=== PATIENT | male | born 1975 | race American Indian/Alaskan Native ===

== ENCOUNTER 2018-07-01 10:03 | Emergency (ER) | payer BC ==
[2018-07-01 10:18] VITALS: BP 129/81
[2018-07-01 10:51] LABS: Hematocrit 44.2 % (35.5-45.6); Hemoglobin 15.2 gm/dl (11.8-15.2); Mean Corpuscular HGB Conc 34 % (32-34); Mean Corpuscular Volume 81 fl (84-94); Platelet Count 233 K/mm3 (140-440); Red Blood Count 5.47 M/mm3 (3.65-5.03); Red Cell Distribution Width 14.7 % (13.2-15.2)
--- NOTE | 2018-07-01 10:59 | XRay Report ---
ROUTINE CHEST, TWO VIEWS: HISTORY: chest pain. The trachea, heart, mediastinal contour, lung holloway and bony thorax are unremarkable. IMPRESSION: Unremarkable chest x-ray.
[2018-07-01 11:09] LABS: BUN/Creatinine Ratio 17; Blood Urea Nitrogen 17 mg/dL (9-20); Calcium 9.3 mg/dL (8.4-10.2); Hemolysis Index 8
--- NOTE | 2018-07-01 11:25 | Emergency Department Report ---
Upper Extremity - HPI Chief Complaint: Extremity Problem,Nontraumatic Stated Complaint: LFT FOOT PAIN Time Seen by Provider: 07/01/18 10:23 Occurred When: 4 Days Severity: moderate Symptoms: Yes Pain with Movement, Yes Swelling, No Deformity, No Limited Range of Movement, No Numbness, No Weakness, No Bruising/Ecchymosis, No Laceration or Abrasion Other History: Patient describes pain ED Review of Systems ROS: Stated complaint: LFT FOOT PAIN Other details as noted in HPI Comment: All other systems reviewed and negative ED Past Medical Hx - Past Medical History Previous Medical History?: No - Surgical History Past Surgical History?: No - Social History Smoking Status: Never Smoker Substance Use Type: Alcohol - Medications Home Medications: Home Medications Medication Instructions Recorded Confirmed Last Taken Type Cyclobenzaprine [Flexeril] 10 mg PO QHS PRN #20 tablet 07/01/18 Unknown Rx HYDROcodone/ACETAMINOPHEN [[place] 1 each PO Q6H #10 tablet 07/01/18 Unknown Rx 5-325 Tablet] Naproxen [Naprosyn] 500 mg PO BID #20 tablet 07/01/18 Unknown Rx Upper Extremity Exam - Exam General: Vital signs noted. No distress. Alert and acting appropriately. Head and Torso: No HEENT Abnormality, No Neck Tenderness, No Chest/Lungs Abnormality, No Abdominal Tenderness, No Back Tenderness Shoulder Exam: Yes Normal Range of Motion in Shoulder, No Shoulder Tenderness, No Clavicle Tenderness, No Shoulder Deformity, No AC Joint Tenderness Arm Exam: No Arm/Humerus Tenderness, No Arm Deformity Elbow: No Elbow Tenderness, No Normal Range of Motion in Elbow, No Elbow Deformity Forearm: No Forearm Tenderness, No Forearm Deformity, No Pain with Pronation, No Pain with Supination Wrist: Yes Normal ROM in Wrist, No Wrist Tenderness, No Wrist Deformity, No Snuffbox Tenderness, No Pain with Axial Thumb Compression Hand: Yes Normal ROM in Digit(s), No Hand Tenderness, No Hand Deformity, No Digit Tenderness, No Digit(s) Deformity, No Tendon Dysfunction CMS Exam: No Broken Skin, No Normal Distal Pulses, No Normal Capillary Refill, No Normal Distal Sensation ED Course Vital Signs 07/01/18 10:16 Temperature 98.5 F Pulse Rate 64 Respiratory 16 Rate Blood Pressure 129/81 [Right] O2 Sat by Pulse 99 Oximetry ED Medical Decision Making - Lab Data Result diagrams: 07/01/18 10:34 07/01/18 10:34 Laboratory Last Values WBC 3.3 K/mm3 (4.5-11.0) L 07/01/18 10:34 RBC 5.47 M/mm3 (3.65-5.03) H 07/01/18 10:34 Hgb 15.2 gm/dl (11.8-15.2) 07/01/18 10:34 Hct 44.2 % (35.5-45.6) 07/01/18 10:34 MCV 81 fl (84-94) L 07/01/18 10:34 MCH 28 pg (28-32) 07/01/18 10:34 MCHC 34 % (32-34) 07/01/18 10:34 RDW 14.7 % (13.2-15.2) 07/01/18 10:34 Plt Count 233 K/mm3 (140-440) 07/01/18 10:34 D-Dimer 164.37 ng/mlDDU (0-234) 07/01/18 10:34 Sodium 140 mmol/L (137-145) 07/01/18 10:34 Potassium 3.8 mmol/L (3.6-5.0) 07/01/18 10:34 Chloride 103.4 mmol/L (98-107) 07/01/18 10:34 Carbon Dioxide 26 mmol/L (22-30) 07/01/18 10:34 Anion Gap 14 mmol/L 07/01/18 10:34 BUN 17 mg/dL (9-20) 07/01/18 10:34 Creatinine 1.0 mg/dL (0.8-1.5) 07/01/18 10:34 Estimated GFR > 60 ml/min 07/01/18 10:34 BUN/Creatinine Ratio 17 % 07/01/18 10:34 Glucose 101 mg/dL (75-100) H 07/01/18 10:34 Calcium 9.3 mg/dL (8.4-10.2) 07/01/18 10:34 NT-Pro-B Natriuret Pep < 5 pg/mL (0-450) 07/01/18 10:34 - Radiology Data Radiology results: report reviewed, image reviewed ROUTINE CHEST, TWO VIEWS: HISTORY: chest pain. The trachea, heart, mediastinal contour, lung holloway and bony thorax are unremarkable. IMPRESSION: Unremarkable chest x-ray. Transcribed By: TTR Dictated By: VELASQUEZ ABAD JR, MD Electronically Authenticated By: VELASQUEZ ABAD JR, MD Signed Date/Time: 07/01/18 1054 - Medical Decision Making 3-year-old male presents with muscle strain of the lower gomes injury. - Differential Diagnosis DVT, myalgia, muscle strain, venous stasis Critical care attestation.: If time is entered above; I have spent that time in minutes in the direct care of this critically ill patient, excluding procedure time. ED Disposition Clinical Impression: Muscle strain, lower leg, Leg muscle spasm Disposition: TO HOME OR SELFCARE Is pt being admited?: No Does the pt Need Aspirin: No Condition: Stable Instructions: Muscle Strain (ED), Trigger Point Pain (ED), Musculoskeletal Pain (ED) Additional Instructions: Make sure to follow up with the primary care physician as discussed. Take all your medications as you've been prescribed. Apply heat 3 times a day to the muscle of the legs. If you have any worsening symptoms or develop new symptoms please return to ED immediately. Prescriptions: Cyclobenzaprine [Flexeril] 10 mg PO QHS PRN #20 tablet PRN Reason: Muscle Spasm Naproxen [Naprosyn] 500 mg PO BID #20 tablet HYDROcodone/ACETAMINOPHEN [[place] 5-325 Tablet] 1 each PO Q6H #10 tablet Referrals: PRIMARY MD STEVE [Primary Care Provider] - 3-5 Days SUNITA OZUNA MD [Staff Physician] - 3-5 Days [facility] [Provider Group] - 3-5 Days Forms: Work/School Release Form(ED) Time of Disposition: 13:14
[2018-07-01 12:51] LABS: Bilirubin,Urine NEG (Negative); Blood,Urine NEG (Negative); Color,Urine Straw (Yellow); Protein,Urine <15 mg/dL mg/dL (Negative); Urobilinogen,Urine < 2.0 mg/dL (<2.0)
--- NOTE | 2018-07-01 13:05 | Vascular Lab Report ---
PROCEDURE: VL VENOUS DUPLEX LE LT TECHNIQUE: Duplex Doppler ultrasound examination of the left leg venous system HISTORY: pain/swelling COMPARISONS: None FINDINGS: Normal compressibility, vascular patency, and augmentation are present diffusely throughout the visua lized portion of the deep veins. No abnormal intraluminal echoes are visualized to suggest deep vein thrombus. IMPRESSION: No sonographic evidence of left leg DVT This document is electronically signed by Surinder Raza MD., July 01 2018 01:03:09 PM ET
--- NOTE | 2018-07-01 16:51 | Emergency Department Report ---
ED Lower Extremity HPI - General Chief Complaint: Extremity Problem,Nontraumatic Stated Complaint: LFT FOOT PAIN Time Seen by Provider: 07/01/18 10:23 Source: patient Mode of arrival: Ambulatory Limitations: No Limitations - History of Present Illness Initial Comments: This is a 43-year-old male with no known medical condition presents to ED who presents to ED complaining of left calf pain 1 week. 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 He denies being out of the country recently. He denies fevers his chest pain/shortness of breath. MD Complaint: leg injury Injury: Leg: Left Place: work Severity: moderate Severity scale (0 -10): 5 Improves With: nothing Worsens With: weight bearing, movement Associated Symptoms: swelling - Related Data Previous Rx's Medication Instructions Recorded Last Taken Type Cyclobenzaprine [Flexeril] 10 mg PO QHS PRN #20 tablet 07/01/18 Unknown Rx HYDROcodone/ACETAMINOPHEN [[place] 1 each PO Q6H #10 tablet 07/01/18 Unknown Rx 5-325 Tablet] Naproxen [Naprosyn] 500 mg PO BID #20 tablet 07/01/18 Unknown Rx Allergies Allergy/AdvReac Type Severity Reaction Status Date / Time No Known Allergies Allergy Verified 07/01/18 10:13 ED Review of Systems ROS: Stated complaint: LFT FOOT PAIN Other details as noted in HPI Comment: All other systems reviewed and negative ED Past Medical Hx - Past Medical History Previous Medical History?: No - Surgical History Past Surgical History?: No - Social History Smoking Status: Never Smoker Substance Use Type: Alcohol - Medications Home Medications: Home Medications Medication Instructions Recorded Confirmed Last Taken Type Cyclobenzaprine [Flexeril] 10 mg PO QHS PRN #20 tablet 07/01/18 Unknown Rx HYDROcodone/ACETAMINOPHEN [[place] 1 each PO Q6H #10 tablet 07/01/18 Unknown Rx 5-325 Tablet] Naproxen [Naprosyn] 500 mg PO BID #20 tablet 07/01/18 Unknown Rx ED Physical Exam - General Limitations: No Limitations General appearance: alert, in no apparent distress - Head Head exam: Present: atraumatic, normocephalic - Eye Eye exam: Present: normal appearance - ENT ENT exam: Present: mucous membranes moist - Neck Neck exam: Present: normal inspection - Respiratory Respiratory exam: Present: normal lung sounds bilaterally. Absent: respiratory distress - Cardiovascular Cardiovascular Exam: Present: regular rate, normal rhythm. Absent: systolic murmur, diastolic murmur, rubs, gallop - GI/Abdominal GI/Abdominal exam: Present: soft, normal bowel sounds - Rectal Rectal exam: Present: deferred - Extremities Exam Extremities exam: Present: normal inspection - Expanded Lower Extremity Exam Left Hip exam: Present: normal inspection, full ROM Upper Leg exam: Present: normal inspection, full ROM. Absent: tenderness Knee exam: Present: normal inspection, full ROM. Absent: tenderness, swelling, erythema, effusion Lower Leg exam: Present: full ROM, tenderness (to the palpation of the calf muscles), swelling (mildly). Absent: deformity, dislocation, palpable cord, Lázaro's sign Ankle exam: Present: normal inspection, tenderness (symptom medial aspect of the ankle, nonerythematous). Absent: swelling Foot/Toe exam: Present: normal inspection, full ROM. Absent: tenderness, swelling Neuro vascular tendon exam: Present: no vascular compromise, abnormal 2-point discrimination Gait: Positive: observed and normal - Back Exam Back exam: Present: normal inspection, full ROM. Absent: tenderness - Neurological Exam Neurological exam: Present: alert, oriented X3 - Psychiatric Psychiatric exam: Present: normal affect, normal mood - Skin Skin exam: Present: warm, dry, intact, normal color. Absent: rash ED Course Vital Signs 07/01/18 10:16 Temperature 98.5 F Pulse Rate 64 Respiratory 16 Rate Blood Pressure 129/81 [Right] O2 Sat by Pulse 99 Oximetry ED Lower Extremity MDM - Lab Data Result diagrams: 07/01/18 10:34 07/01/18 10:34 Laboratory Last Values WBC 3.3 K/mm3 (4.5-11.0) L 07/01/18 10:34 RBC 5.47 M/mm3 (3.65-5.03) H 07/01/18 10:34 Hgb 15.2 gm/dl (11.8-15.2) 07/01/18 10:34 Hct 44.2 % (35.5-45.6) 07/01/18 10:34 MCV 81 fl (84-94) L 07/01/18 10:34 MCH 28 pg (28-32) 07/01/18 10:34 MCHC 34 % (32-34) 07/01/18 10:34 RDW 14.7 % (13.2-15.2) 07/01/18 10:34 Plt Count 233 K/mm3 (140-440) 07/01/18 10:34 164.37 ng/mlDDU (0-234) 07/01/18 10:34 Sodium 140 mmol/L (137-145) 07/01/18 10:34 Potassium 3.8 mmol/L (3.6-5.0) 07/01/18 10:34 Chloride 103.4 mmol/L (98-107) 07/01/18 10:34 Carbon Dioxide 26 mmol/L (22-30) 07/01/18 10:34 14 mmol/L 07/01/18 10:34 BUN 17 mg/dL (9-20) 07/01/18 10:34 1.0 mg/dL (0.8-1.5) 07/01/18 10:34 Estimated GFR > 60 ml/min 07/01/18 10:34 17 % 07/01/18 10:34 Glucose 101 mg/dL (75-100) H 07/01/18 10:34 Calcium 9.3 mg/dL (8.4-10.2) 07/01/18 10:34 NT-Pro-B Natriuret Pep < 5 pg/mL (0-450) 07/01/18 10:34 Straw (Yellow) 07/01/18 Unknown Clear (Clear) 07/01/18 Unknown 7.0 (5.0-7.0) 07/01/18 Unknown Ur Specific [place] 1.011 (1.003-1.030) 07/01/18 Unknown <15 mg/dl mg/dL (Negative) 07/01/18 Unknown Neg mg/dL (Negative) 07/01/18 Unknown Neg mg/dL (Negative) 07/01/18 Unknown Neg (Negative) 07/01/18 Unknown Neg (Negative) 07/01/18 Unknown Neg (Negative) 07/01/18 Unknown < 2.0 mg/dL (<2.0) 07/01/18 Unknown Ur Leukocyte Esterase Neg (Negative) 07/01/18 Unknown 1.0 /HPF (0.0-6.0) 07/01/18 Unknown 2.0 /HPF (0.0-6.0) 07/01/18 Unknown - Radiology Data Radiology results: report reviewed, image reviewed OUTINE CHEST, TWO VIEWS: HISTORY: chest pain. The trachea, heart, mediastinal contour, lung holloway and bony thorax are unremarkable. IMPRESSION: Unremarkable chest x-ray. Transcribed By: TTR Dictated By: VELASQUEZ ABAD JR, MD Electronically Authenticated By: VELASQUEZ ABAD JR, MD Signed Date/Time: 07/01/18 1054 - Medical Decision Making 43-year-old male presents with lower leg muscle strain. All labs within normal limits. Discussed the patient to rest and avoid stress activities for the next couple of days Discussed follow-up with the primary care physician. Vital signs are normal patient is in no acute distress Critical care attestation.: If time is entered above; I have spent that time in minutes in the direct care of this critically ill patient, excluding procedure time. ED Disposition Clinical Impression: Muscle strain, lower leg, Leg muscle spasm Disposition: TO HOME OR SELFCARE Is pt being admited?: No Does the pt Need Aspirin: No Condition: Stable Instructions: Muscle Strain (ED), Trigger Point Pain (ED), Musculoskeletal Pain (ED) Additional Instructions: Make sure to follow up with the primary care physician as discussed. Take all your medications as you've been prescribed. Apply heat 3 times a day to the muscle of the legs. If you have any worsening symptoms or develop new symptoms please return to ED immediately. Prescriptions: Cyclobenzaprine [Flexeril] 10 mg PO QHS PRN #20 tablet PRN Reason: Muscle Spasm Naproxen [Naprosyn] 500 mg PO BID #20 tablet HYDROcodone/ACETAMINOPHEN [[place] 5-325 Tablet] 1 each PO Q6H #10 tablet Referrals: [facility] [Provider Group] - 3-5 Days PRIMARY [facility]ARE, [Primary Care Provider] - 3-5 Days SUNITA OZUNA MD [Staff Physician] - 3-5 Days Forms: Work/School Release Form(ED)
== END 2018-07-01 13:34 | disposition home or self-care (01) ==
LOC: ED 10:03
DX: S86.912A Strain of unspecified muscle(s) and tendon(s) at lower leg level, left leg, initial encounter (principal); X50.1XXA Overexertion from prolonged static or awkward postures, initial encounter; Y93.89 Activity, other specified; Y92.69 Other specified industrial and construction area as the place of occurrence of the external cause; Y99.8 Other external cause status
CPT/HCPCS: 36415; 71046; 80048; 81001; 83880; 85027; 85379; 99284